=== PATIENT | male | born 1975 | race Caucasian/White ===

== ENCOUNTER → 2024-02-07 14:13 | Outpatient (REF) | payer BC, SELFPAY | LOC: RAD 14:13 | PROVIDERS: ATTENDING PHYSICIAN Nurse Practitioner Family | DX: B99.9 Unspecified infectious disease (principal); L53.9 Erythematous condition, unspecified | CPT/HCPCS: 93922; 93925 ==

== ENCOUNTER → 2024-05-14 14:57 | Outpatient (REF) | payer BC, SELFPAY | LOC: HWRAD 14:57 | PROVIDERS: ATTENDING PHYSICIAN Nurse Practitioner Family | DX: M54.16 Radiculopathy, lumbar region (principal) | CPT/HCPCS: 72110 ==

== ENCOUNTER 2024-06-27 07:45 | Emergency (ER) | payer BC, SELFPAY ==
[2024-06-27 07:47] VITALS: BP 180/112
--- NOTE | 2024-06-27 08:29 | ED.GENMED ---
History of Present Illness
General
Chief Complaint: Back Pain
Source: patient
Exam Limitations: none
Time Seen by Provider: 06/27/24 07:55
Nursing documentation reviewed up to this point in time: agreed with
History of Present Illness
History of Present Illness:
Patient is a 49-year-old male with past medical history of factor V Leiden, recent diagnosis of herniated L5 dis followed by Dr. Gray
. Patient recently had epidural last Tuesday 5 days ago however since then reports pain is not any better. He actually describes throbbing pain of his right leg from his buttocks down. He is concerned about possible clot with factor V Leiden
history. He has been taking gabapentin and Naprosyn however this is not working. He has not taken anything today. He denies any fever chills injury /leg swelling. He denies any weakness in his legs. He denies any paresthesia. He denies any
incontinence of bowel bladder. He denies back pain.
Pt notes that his right leg is normally larger than his left leg because his left leg is chronically smaller from previous ankle.
Past History
Past History
ED Past Medical History: None
ED Past Surgical History: None
Review of Systems
Review of Systems
Allergies reviewed?: Yes
All Other Systems: ROS reviewed and negative except as documented in HPI and ROS
Constitutional: Reports no symptoms; Denies fever
Musculoskeletal: Reports other (right leg pain )
Skin: Reports no symptoms
Neurological: Reports no symptoms
Psychiatric: Reports no symptoms
Phy Exam
General Physical Exam
General Presentation: no apparent distress
General age: appears stated age
General Skin: warm and dry
General Habitus: normal
General Mental: alert
General Hydration: appears well hydrated
Neurological Exam
Neurological Exam: alert, oriented x3 and other (Intact distal sensation normal dorsiflexion plantarflexion)
Musculoskeletal Exam
Musculoskeletal Exam: full ROM and other (Right leg with strong pulses no obvious swelling or erythema)
Skin Exam
Skin Exam: normal color and warm/dry
Psychiatric Exam
Psychiatric Exam: normal mood/affect
Course
Orders/Labs/Results
Orders:
Orders
06/27/24 08:25
Venous Doppler Lwr Ext Rt [US Perip Venous LOWER Ext RT] Urgent
Comment:
Reason For Exam: throbbing right leg pain hx of factor v leiden
06/27/24 08:28
Dexamethasone Sod Phosphate [Decadron] 10 mg IV NOW STA
06/27/24 08:29
Ketorolac [Toradol] 30 mg IM NOW STA
06/27/24 08:43
Dexamethasone Sod Phosphate [Decadron] 10 mg IM NOW STA
Vital Signs
Initial and Last Documented VS:
Initial Vital Signs
Temp Pulse Resp BP Pulse Ox
97.9 F 71 18 180/112 98
06/27/24 07:47 06/27/24 07:47 06/27/24 07:47 06/27/24 07:47 06/27/24 07:47
Last Documented Vital Signs
Temp Pulse Resp BP Pulse Ox
97.9 F 75 20 165/84 99
06/27/24 07:47 06/27/24 09:00 06/27/24 09:00 06/27/24 09:00 06/27/24 09:00
MDM/Problems Addressed
Differential Diagnosis Includes:
Not limited to sciatica, less likely DVT
MDM/Problems Addressed:
Symptoms are consistent with sciatica ultrasound negative for DVT. Patient is followed by Dr. Rishi GRAY and has seen pain management for epidural injections. He has not yet started physical therapy. Patient was given Decadron Toradol here
feeling some relief will DC with a prescription for long taper steroid with close outpatient follow-up
*Radiology
Radiology exam reviewed: radiology read reviewed
*Pulse Oximetry
Patient hypoxic: no
*Critical Care Note
Total Time (30-74mins, 75-104mins- exclusive of procedures): Not Applicable
ED Attending Note
-
Portions of this chart may have been created with voice recognition software.� Occasional wrong word or��sound alike� substitutions may have occurred due to the inherent limitations of voice recognition software.
Discharge Plan
Departure
Patient Disposition: Home (Routine Discharge)
Date of Disposition: 06/27/24
Time of Disposition: 11:19
Patient with high blood pressure during this ER visit?: Yes
Condition: Fair
Covid-19: Not Applicable
Discharge Problem:
Sciatica
Instructions: Sciatica (DC), BLOOD PRESSURE
Prescriptions:
New
prednisone 10 mg Tablet
See Rx Instructions .ROUTE .COMPLEX Qty: 30 0RF
Rx Instructions:
Take By Mouth:
40 mg daily x3 days, 30 mg daily x3 days,
20 mg daily x3 days, 10 mg daily x3 days.
No Action
Lisinopril
DAILY
Patient Comments:
unsure of dose, will verify with girlfriend later on
cephalexin 500 MG capsule
500 mg PO QID 5 Days Qty: 18 0RF
Rx Instructions:
First dose on 01/26, take 2 doses on 01/26 then take as prescribed
cephalexin 500 mg capsule
500 mg PO QID 7 Days Qty: 28 0RF
Referrals:
Christiano Multani CRNP [Family Provider] -
Rishi Gray MD [Active] -
Activity Restrictions/Additional Instructions:
As discussed a prescription for steroids was sent to your pharmacy. Start tomorrow as directed. Follow-up with your family doctor/pain management surgeon as scheduled return if any worsening of symptoms.
Interventions
Interventions:
*Risk Screen - Suicide Last Done: 06/27/24 07:47
*General Assessment Last Done: 06/27/24 07:47
*Neglect/Abuse Screening Last Done: 06/27/24 07:47
Discharge Date and Time
Print Language: ROMANSH
[2024-06-27] MEDS: DECADRON 10 MG IM (08:45)
[2024-06-27] MEDS: TORADOL 30 MG IM (08:45)
[2024-06-27 09:00] VITALS: BP 165/84
[2024-06-27 11:30] VITALS: BP 155/92
== END 2024-06-27 12:00 | disposition home or self-care (01) ==
LOC: EMR 07:45
PROVIDERS: EMERGENCY PHYSICIAN Student in an Organized Health Care Education/Training Program; FAMILY PHYSICIAN Nurse Practitioner Family
DX: M54.31 Sciatica, right side (principal); D68.51 Activated protein C resistance
CPT/HCPCS: 96372; 99284; 93971

== ENCOUNTER → 2024-09-17 07:48 | Outpatient (REF) | payer BC, SELFPAY | LOC: HWRAD 07:48 | PROVIDERS: ATTENDING PHYSICIAN Nurse Practitioner Family | DX: Z87.891 Personal history of nicotine dependence (principal) | CPT/HCPCS: 71271 ==

== ENCOUNTER → 2024-10-17 07:46 | Outpatient (REF) | payer BC, SELFPAY | LOC: RCS 07:46 | PROVIDERS: ATTENDING PHYSICIAN Nuclear Medicine Nuclear Cardiology; FAMILY PHYSICIAN Nurse Practitioner Family | DX: I25.10 Atherosclerotic heart disease of native coronary artery without angina pectoris (principal); E78.2 Mixed hyperlipidemia; I10 Essential (primary) hypertension; F17.200 Nicotine dependence, unspecified, uncomplicated; R06.02 Shortness of breath | CPT/HCPCS: 93306 ==

== ENCOUNTER → 2024-12-11 13:57 | Outpatient (REF) | payer BC, SELFPAY | LOC: RCS 13:57 | PROVIDERS: ATTENDING PHYSICIAN Nuclear Medicine Nuclear Cardiology; FAMILY PHYSICIAN Nurse Practitioner Family | DX: I25.10 Atherosclerotic heart disease of native coronary artery without angina pectoris (principal); E78.2 Mixed hyperlipidemia; I10 Essential (primary) hypertension; F17.200 Nicotine dependence, unspecified, uncomplicated; R06.02 Shortness of breath | CPT/HCPCS: 93017; 93350 ==